=== PATIENT | male | born 1990 | race Caucasian/White ===

== ENCOUNTER 2020-02-23 21:02 | Emergency (ER) | payer OTHER ==
[~2020-02-23] VITALS: Ht 180.3 cm; Wt 77.2 kg
[2020-02-23 21:20] VITALS: BP 141/88
[2020-02-23] MEDS ORDERED: MUPI22OI2 TP (21:38)
--- NOTE | 2020-02-23 21:39 | PHYS DOC ---
Past Medical History Past Medical History: No Pertinent History Past Surgical History: No Surgical History Alcohol Use: None Drug Use: None General Adult EDM: Chief Complaint: PENIS PROBLEM HPI: HPI: Patient is a 29 year old male who presents to the emergency department with complaints of a red itchy area to the edge of the glans of his penis for the last week. He denies any irregular penile discharge, dysuria, hematuria, fever, abdominal pain, back pain, or rash. Patient denies any known contacts with sexually transmitted infection. He denies any pain at this time, he just rep orts itchy discomfort. Review of Systems: Review of Systems: Constitutional: Denies fever or chills. [] Eyes: Denies change in visual acuity. [] HENT: Denies nasal congestion or sore throat. [] Respiratory: Denies cough or shortness of breath. [] Cardiovascular: Denies chest pain or edema. [] GI: Denies abdominal pain, nausea, vomiting, bloody stools or diarrhea. [] : Denies dysuria. [] Musculoskeletal: Denies back pain or joint pain. [] Integument: Denies rash. [] Neurologic: Denies headache, focal weakness or sensory changes. [] Endocrine: Denies polyuria or polydipsia. [] Lymphatic: Denies swollen glands. [] Psychiatric: Denies depression or anxiety. [] Heart Score: Risk Factors: Risk Factors: DM, Current or recent (<one month) smoker, HTN, HLP, family history of CAD, obesity. Risk Scores: Score 0 - 3: 2.5% MACE over next 6 weeks - Discharge Home Score 4 - 6: 20.3% MACE over next 6 weeks - Admit for Clinical Observation Score 7 - 10: 72.7% MACE over next 6 weeks - Early Invasive Strategies Allergies: Allergies: Allergies Coded Allergies Type Severity Reaction Last Updated Verified No Known Drug Allergies 07/27/13 No Physical Exam: PE: Constitutional: Well developed, well nourished, no acute distress, non-toxic appearance. [] HENT: Normocephalic, atraumatic, bilateral external ears normal, nose normal. [] Eyes: PERRLA, EOMI, conjunctiva normal, no discharge. [] Neck: Normal range of motion, no stridor. [] Cardiovascular:Heart rate regular rhythm Lungs & Thorax: Respirations even and unlabored, no retractions, no respiratory distress : Swollen, erythematous area noted to the bennett of the glans of the penis at 2:00 without ulceration or drainage, consistent with allergic reaction to insect bite/infected insect bite Skin: Warm, dry Extremities: No cyanosis, ROM intact, no edema. [] Neurologic: Alert and oriented X 3, no focal deficits noted. [] Psychologic: Affect normal, judgement normal, mood normal. [] EKG: EKG: [] Radiology/Procedures: Radiology/Procedures: [] Course & Med Decision Making: Course & Med Decision Making Pertinent Labs and Imaging studies reviewed. (See chart for details) [] Dragon Disclaimer: Dragon Disclaimer: This electronic medical record was generated, in whole or in part, using a voice recognition dictation system. Departure Departure Impression: Primary Impression: Insect bite (nonvenomous) of penis, initial encounter Disposition: HOME, SELF-CARE Condition: STABLE Referrals: NO PCP (PCP) Patient Instructions: Insect Bite, [id number] Additional Instructions: Fill the prescription and use it as directed. If symptoms worsen or do not improve I would recommend that you follow-up with your primary care doctor or go to the local health department for comprehensive sexually transmitted disease testing. Scripts Mupirocin (MUPIROCIN OINTMENT) 22 Gm Oint...g. 1 HO TP TID for WOUND CARE for 7 Days, #1 TUBE 0 Refills Prov: LOBITO KERN APRN 02/23/20 Justicifation of Admission Dx: Justifications for Admission: Justification of Admission Dx: N/A LOBITO KERN TRIAL MGR Feb 23, 2020 21:39
== END 2020-02-23 21:47 | disposition home or self-care (01) ==
LOC: ER 21:02
DX: S30.862A Insect bite (nonvenomous) of penis, initial encounter (principal); W57.XXXA Bitten or stung by nonvenomous insect and other nonvenomous arthropods, initial encounter; Y93.89 Activity, other specified; Y92.89 Other specified places as the place of occurrence of the external cause; Y99.8 Other external cause status
CPT/HCPCS: 99283